=== PATIENT | female | born 1935 | race African-American/Black ===

== ENCOUNTER 2017-03-12 09:30 | Day surgery (SDC) | payer MEDICARE, BC ==
[2017-03-12] MEDS ORDERED: AMLO10TA80 PO (11:16)
[2017-03-12] MEDS ORDERED: ATOR10TA PO (11:16)
[2017-03-12] MEDS ORDERED: DONE5TAB33 PO (11:16)
[2017-03-12] MEDS ORDERED: DOXA2TAB2 PO (11:16)
[2017-03-12] MEDS ORDERED: GABA-529 PO (11:16)
[2017-03-12] MEDS ORDERED: OXYBUTYNIN CHLORIDE (11:16)
[2017-03-12] MEDS ORDERED: BACL-141 PO (11:16)
[2017-03-12] MEDS ORDERED: FURO20TA4 PO (11:16)
[2017-03-12] MEDS ORDERED: CLON0.1T PO (11:16)
[2017-03-12] MEDS ORDERED: vicodin PO (11:16)
[2017-03-12] MEDS ORDERED: MIDAZOLAM HCL 2 MG/2 ML VIAL ONE (11:44)
[2017-03-12] MEDS ORDERED: HEPARIN SODIUM 1,000 UNIT/1ML VIAL IV ONE (11:45)
[2017-03-12] MEDS ORDERED: FENTANYL CITRATE/PF 50MCG/ML 2ML VIAL ONE (11:45)
[2017-03-12] MEDS ORDERED: IOHEXOL-300 100 ML BOTTLE ONE (11:46)
[2017-03-12] MEDS ORDERED: LIDOCAINE HCL 1% 20ML VIAL (Pyxis) INJ ONE (11:46)
[2017-03-12] MEDS ORDERED: ACETAMINOPHEN 325MG TABLET PO PRN (13:00)
== END 2017-03-12 17:00 | disposition home or self-care (01) ==
LOC: CCL 09:30
PROVIDERS: ATTEND Specialist
DX: I35.0 Nonrheumatic aortic (valve) stenosis (principal); I25.10 Atherosclerotic heart disease of native coronary artery without angina pectoris; I11.9 Hypertensive heart disease without heart failure; E78.5 Hyperlipidemia, unspecified
CPT/HCPCS: 93460; 99152; 99153; C1760; C1769; C1887; C1893; J1644; J2250; J3010; J3490; J7040; Q9967

== ENCOUNTER 2017-05-15 17:02 | Inpatient (IN) | payer MEDICARE, BC ==
[~2017-05-15] VITALS: Ht 167.6 cm; Wt 84.6 kg
[~2017-05-15 17:02] MED LIST: AMLO10TA80 PO; ATOR10TA PO; BACL-141 PO; CLON0.1T PO; DONE5TAB33 PO; DOXA2TAB2 PO; FURO20TA4 PO; GABA-529 PO; OXYBUTYNIN CHLORIDE; vicodin PO
[2017-05-15] MEDS ORDERED: SODIUM CHLORIDE 0.9% 1,000 ML IV ONE ×2 (17:32→18:45)
[2017-05-15] MEDS ORDERED: PANTOPRAZOLE SODIUM 40 MG/VIAL IV STA (17:32)
[2017-05-15 18:20] LABS: BASOPHILS % 0.3 % (0.0-2.0); LYMPHOCYTES % 9.3 % (20.0-50.0); MEAN CORPUSCULAR HEMOGLOBIN 28.1 pg (28.0-32.0); MEAN CORPUSCULAR VOLUME 87.4 fL (81.0-99.0); MEAN PLATELET VOLUME 9.3 fl (7.4-10.4); MONOCYTES % 5.1 % (2.0-8.0); NEUTROPHILS % 85.3 % (40.0-76.0); PLATELET 145 x1000/uL (130-400)
[2017-05-15 18:21] LABS: CHLORIDE 108 mEq/L (98-107); HEMATOCRIT. 17.5 % (36.0-48.0); HEMOGLOBIN. 5.6 g/dL (12.0-16.0)
[2017-05-15 18:22] LABS: INR 1.1; PROTHROMBIN TIME 11.6 sec (9.4-11.6)
[2017-05-15 18:27] LABS: CARBON DIOXIDE 19 mEq/L (21-32)
[2017-05-15] MEDS ORDERED: FENTANYL CITRATE/PF 50MCG/ML 2ML VIAL IV ONE (21:45)
[2017-05-15] MEDS ORDERED: CLONIDINE 0.1MG TABLET PO PRN (23:15)
[2017-05-16] VITALS (22 sets, daily range): BP systolic 91–142; BP diastolic 40–88
[2017-05-16] MEDS: HYDROCODONE/APAP 7.5/325MG 1 TAB TABLET PO PRN ×2 (00:01→12:06)
[2017-05-16] MEDS ORDERED: BACLOFEN 10MG TABLET PO PRN (00:30)
[2017-05-16] MEDS ORDERED: FUROSEMIDE 20MG/2ML VIAL IVP NR (01:00)
[2017-05-16] MEDS ORDERED: PANTOPRAZOLE SODIUM 40 MG/VIAL IV NR (03:15)
[2017-05-16] MEDS: ONDANSETRON HCL 4MG/2ML VIAL IV PRN (03:44)
[2017-05-16] MEDS ORDERED: BACLOFEN 10MG TABLET PO SCH (06:00)
[2017-05-16] MEDS: GABAPENTIN 100MG CAPSULE PO SCH (08:45)
[2017-05-16] MEDS ORDERED: PANTOPRAZOLE SODIUM 40 MG/VIAL IV SCH (09:00)
[2017-05-16] MEDS ORDERED: OCTREOTIDE ACETATE 50 MCG/ML 1ML IV ONE (10:15)
[2017-05-16] MEDS ORDERED: OCTREOTIDE ACETATE 50 MCG/ML 1ML IV NR (11:30)
[2017-05-16] MEDS: OCTREOTIDE 1,000 MCG in SODIUM CHLORIDE 0.9% 98 ML IV SCH (11:55)
[2017-05-16 12:39] LABS: BASOPHILS % 0.4 % (0.0-2.0); EOSINOPHILS % 0.1 % (0.0-5.0); HEMATOCRIT. 25.3 % (36.0-48.0); HEMOGLOBIN. 8.7 g/dL (12.0-16.0); LYMPHOCYTES % 15.7 % (20.0-50.0); MEAN CORPUSCULAR HEMOGLOBIN 28.2 pg (28.0-32.0); MEAN CORPUSCULAR VOLUME 81.4 fL (81.0-99.0); MEAN PLATELET VOLUME 10.2 fl (7.4-10.4); MONOCYTES % 9.3 % (2.0-8.0); NEUTROPHILS % 74.5 % (40.0-76.0); PLATELET 105 x1000/uL (130-400); RED CELL DISTRIBUTION WIDTH 17.5 % (11.6-14.6)
[2017-05-16] MEDS ORDERED: MIDAZOLAM HCL 5 MG/5 ML VIAL ONE (13:27)
[2017-05-16] MEDS ORDERED: SIMETHICONE 40 MG/0.6 ML 30ML ONE (13:27)
[2017-05-16] MEDS ORDERED: FENTANYL CITRATE/PF 50MCG/ML 2ML VIAL ONE (13:27)
[2017-05-16] MEDS ORDERED: EPINEPHRINE 0.1MG/ML (1:10,000) 10ML SYR ONE (13:50)
[2017-05-16] MEDS ORDERED: PROPOFOL 200MG/20ML VIAL IV ONE (14:17)
[2017-05-16] MEDS: PANTOPRAZOLE 80 MG in SODIUM CHLORIDE 0.9% 100 ML IV SCH (16:46)
[2017-05-16] MEDS: MORPHINE SULFATE 4 MG/ML CPJ (NOT FOR IM USE) IV PRN (20:54)
[2017-05-16] MEDS: ATORVASTATIN CALCIUM 10MG TABLET PO SCH (20:54)
[2017-05-17] VITALS (16 sets, daily range): BP systolic 99–162; BP diastolic 36–89
[2017-05-17] MEDS: MORPHINE SULFATE 4 MG/ML CPJ (NOT FOR IM USE) IV PRN ×3 (02:29→12:43)
[2017-05-17] MEDS: ONDANSETRON HCL 4MG/2ML VIAL IV PRN (05:22)
[2017-05-17] MEDS: OCTREOTIDE 1,000 MCG in SODIUM CHLORIDE 0.9% 98 ML IV SCH ×3 (05:23→17:30)
[2017-05-17] MEDS: PANTOPRAZOLE 80 MG in SODIUM CHLORIDE 0.9% 100 ML IV SCH ×3 (05:24→17:17)
[2017-05-17] MEDS: GABAPENTIN 100MG CAPSULE PO SCH (08:30)
[2017-05-17 10:40] LABS: BASOPHILS % 0.6 % (0.0-2.0); EOSINOPHILS % 0.3 % (0.0-5.0); HEMATOCRIT. 23.2 % (36.0-48.0); HEMOGLOBIN. 7.8 g/dL (12.0-16.0); LYMPHOCYTES % 13.4 % (20.0-50.0); MEAN CORPUSCULAR HEMOGLOBIN 28.3 pg (28.0-32.0); MEAN CORPUSCULAR VOLUME 84.4 fL (81.0-99.0); MEAN PLATELET VOLUME 9.6 fl (7.4-10.4); MONOCYTES % 9.5 % (2.0-8.0); NEUTROPHILS % 76.2 % (40.0-76.0); PLATELET 119 x1000/uL (130-400); RED BLOOD CELL COUNT 2.75 mill/uL (4.2-5.4); RED CELL DISTRIBUTION WIDTH 17.7 % (11.6-14.6)
[2017-05-17] MEDS: HYDROCODONE/APAP 7.5/325MG 1 TAB TABLET PO PRN ×2 (14:19→21:12)
[2017-05-17 18:53] LABS: HEMATOCRIT 25.7 % (36.0-48.0); HEMOGLOBIN 8.7 g/dL (12.0-16.0)
[2017-05-17] MEDS: ATORVASTATIN CALCIUM 10MG TABLET PO SCH (21:12)
[2017-05-18] VITALS (78 sets, daily range): BP systolic 53–169; BP diastolic 21–127
[2017-05-18] MEDS: MORPHINE SULFATE 4 MG/ML CPJ (NOT FOR IM USE) IV PRN ×2 (01:13→22:10)
[2017-05-18] MEDS: ONDANSETRON HCL 4MG/2ML VIAL IV PRN (04:12)
[2017-05-18] MEDS: OCTREOTIDE 1,000 MCG in SODIUM CHLORIDE 0.9% 98 ML IV SCH (04:13)
[2017-05-18] MEDS: PANTOPRAZOLE 80 MG in SODIUM CHLORIDE 0.9% 100 ML IV SCH ×2 (04:13→15:30)
[2017-05-18] MEDS ORDERED: METOCLOPRAMIDE HCL 10MG/2ML VIAL IV NR (05:29)
[2017-05-18] MEDS ORDERED: SODIUM CHLORIDE 0.9% 500 ML IV NR (05:30)
[2017-05-18 06:16] LABS: BASOPHILS % 0.7 % (0.0-2.0); EOSINOPHILS % 1.2 % (0.0-5.0); HEMATOCRIT. 21.2 % (36.0-48.0); LYMPHOCYTES % 23.4 % (20.0-50.0); MEAN CORPUSCULAR HEMOGLOBIN 28.8 pg (28.0-32.0); MEAN PLATELET VOLUME 10.7 fl (7.4-10.4); NEUTROPHILS % 65.7 % (40.0-76.0); PLATELET 86 x1000/uL (130-400); RED BLOOD CELL COUNT 2.44 mill/uL (4.2-5.4)
[2017-05-18] MEDS ORDERED: NOREPINEPHRINE 8 MG in DEXT 5% WATER 242 ML IV PRN (07:30)
[2017-05-18] MEDS ORDERED: PROMETHAZINE HCL 25MG SUPP PR NR (08:00)
[2017-05-18] MEDS: GABAPENTIN 100MG CAPSULE PO SCH (09:00)
[2017-05-18] MEDS ORDERED: LIDOCAINE HCL 1% 20ML VIAL (Pyxis) INJ ONE (09:15)
[2017-05-18] MEDS ORDERED: SODIUM BICARBONATE 4% (2.4MEQ) 5ML VIAL IV ONE (09:15)
[2017-05-18] MEDS ORDERED: PHENYLEPHRINE 20 MG in DEXT 5% WATER 248 ML IV PRN (09:45)
[2017-05-18] MEDS ORDERED: DIGOXIN 500MCG/2ML AMP IV NR (09:45)
[2017-05-18] MEDS ORDERED: DILTIAZEM HCL 125 MG in DEXT 5% WATER 100 ML IV PRN (09:45)
[2017-05-18] MEDS ORDERED: FUROSEMIDE 20MG/2ML VIAL IVP NR ×3 (10:15→13:45)
[2017-05-18] MEDS ORDERED: IPRATROPIUM/ALBUTEROL 0.5-3(2.5)MG/3ML NEB HHN PRN (11:30)
[2017-05-18 17:22] LABS: BASOPHILS % 0.1 % (0.0-2.0); HEMATOCRIT. 32.8 % (36.0-48.0); HEMOGLOBIN. 11.2 g/dL (12.0-16.0); LYMPHOCYTES % 7.5 % (20.0-50.0); MEAN CORPUSCULAR HEMOGLOBIN 29.9 pg (28.0-32.0); MEAN CORPUSCULAR VOLUME 87.6 fL (81.0-99.0); MEAN PLATELET VOLUME 9.6 fl (7.4-10.4); MONOCYTES % 11.2 % (2.0-8.0); NEUTROPHILS % 81.2 % (40.0-76.0); PLATELET 114 x1000/uL (130-400); RED BLOOD CELL COUNT 3.74 mill/uL (4.2-5.4); RED CELL DISTRIBUTION WIDTH 15.7 % (11.6-14.6)
[2017-05-18] MEDS: ATORVASTATIN CALCIUM 10MG TABLET PO SCH (21:00)
[2017-05-19] VITALS (67 sets, daily range): BP systolic 95–167; BP diastolic 47–122
[2017-05-19] MEDS: MORPHINE SULFATE 4 MG/ML CPJ (NOT FOR IM USE) IV PRN ×3 (01:36→11:05)
[2017-05-19] MEDS: PANTOPRAZOLE 80 MG in SODIUM CHLORIDE 0.9% 100 ML IV SCH ×2 (02:12→11:32)
[2017-05-19] MEDS: OCTREOTIDE 1,000 MCG in SODIUM CHLORIDE 0.9% 98 ML IV SCH (02:17)
[2017-05-19 06:12] LABS: BASOPHILS % 0.1 % (0.0-2.0); EOSINOPHILS % 0.3 % (0.0-5.0); HEMATOCRIT. 30.2 % (36.0-48.0); LYMPHOCYTES % 18.9 % (20.0-50.0); MEAN CORPUSCULAR HEMOGLOBIN 29.5 pg (28.0-32.0); MEAN CORPUSCULAR VOLUME 88.6 fL (81.0-99.0); MEAN PLATELET VOLUME 10.1 fl (7.4-10.4); MONOCYTES % 11.8 % (2.0-8.0); NEUTROPHILS % 68.9 % (40.0-76.0); PLATELET 93 x1000/uL (130-400); RED BLOOD CELL COUNT 3.41 mill/uL (4.2-5.4); RED CELL DISTRIBUTION WIDTH 15.9 % (11.6-14.6)
[2017-05-19] MEDS: GABAPENTIN 100MG CAPSULE PO SCH ×2 (09:00→14:24)
[2017-05-19] MEDS: PANTOPRAZOLE SODIUM 40 MG/VIAL IV SCH ×2 (13:12→22:15)
[2017-05-19] MEDS: ATORVASTATIN CALCIUM 10MG TABLET PO SCH (22:15)
[2017-05-20] VITALS (36 sets, daily range): BP systolic 106–180; BP diastolic 54–100
[2017-05-20] MEDS: MORPHINE SULFATE 4 MG/ML CPJ (NOT FOR IM USE) IV PRN ×5 (00:18→18:58)
[2017-05-20] MEDS: PANTOPRAZOLE SODIUM 40 MG/VIAL IV SCH ×2 (08:16→20:38)
[2017-05-20] MEDS: GABAPENTIN 100MG CAPSULE PO SCH (08:24)
[2017-05-20 08:47] LABS: HEMATOCRIT 27.4 % (36.0-48.0); HEMOGLOBIN 9.2 g/dL (12.0-16.0); MEAN CORPUSCULAR HEMOGLOBIN 29.6 pg (28.0-32.0); MEAN CORPUSCULAR VOLUME 88.3 fL (81.0-99.0); PLATELET 120 x1000/uL (130-400); RED CELL DISTRIBUTION WIDTH 15.7 % (11.6-14.6)
[2017-05-20] MEDS: ATORVASTATIN CALCIUM 10MG TABLET PO SCH (20:38)
[2017-05-21] VITALS (24 sets, daily range): BP systolic 76–159; BP diastolic 48–90
[2017-05-21] MEDS ORDERED: MORPHINE SULFATE 4 MG/ML CPJ (NOT FOR IM USE) IV PRN ×2 (04:15→09:30)
[2017-05-21 07:31] LABS: HEMATOCRIT. 26.8 % (36.0-48.0); MEAN CORPUSCULAR HEMOGLOBIN 29.6 pg (28.0-32.0); MEAN CORPUSCULAR VOLUME 88.4 fL (81.0-99.0); MEAN PLATELET VOLUME 9.2 fl (7.4-10.4); PLATELET 125 x1000/uL (130-400); RED BLOOD CELL COUNT 3.04 mill/uL (4.2-5.4)
[2017-05-21 08:02] LABS: CHLORIDE 113 mEq/L (98-107)
[2017-05-21 08:08] LABS: CARBON DIOXIDE 25 mEq/L (21-32); HDL CHOLESTEROL 29 mg/dL (40-59); LDL CHOLESTEROL 46 mg/dL (5-100)
[2017-05-21] MEDS: AMLODIPINE 5MG TABLET PO SCH ×2 (09:30→23:14)
[2017-05-21] MEDS: PANTOPRAZOLE SODIUM 40 MG/VIAL IV SCH ×2 (09:50→21:40)
[2017-05-21] MEDS: GABAPENTIN 100MG CAPSULE PO SCH (09:50)
[2017-05-21] MEDS: DOCUSATE SODIUM 250MG CAPSULE PO SCH (11:42)
[2017-05-21 12:15] LABS: PLATELET ESTIMATE SLIGHTLY DECREASED
[2017-05-21 13:34] LABS: CLARITY URINE CLOUDY (CLEAR); COLOR URINE YELLOW (YELLOW); GLUCOSE URINE NEGATIVE (NEGATIVE); KETONES URINE NEGATIVE (NEGATIVE); LEUKOCYTE ESTERASE URINE 3+ (NEGATIVE); NITRITE URINE POSITIVE (NEGATIVE); OCCULT BLOOD URINE 3+ (NEGATIVE); PH URINE >=9.0 (4.5-8.0); PROTEIN URINE 1+ (NEGATIVE); SPECIFIC GRAVITY URINE 1.021 (1.005-1.030); UROBILINOGEN URINE 0.2 E.U./dL (0.2-1.0)
[2017-05-21] MEDS: ATORVASTATIN CALCIUM 10MG TABLET PO SCH (21:40)
[2017-05-21] MEDS: MORPHINE SULFATE 2 MG/ML CPJ (NOT FOR IM USE) IV PRN (21:42)
[2017-05-21] MEDS: LEVOFLOXACIN 500MG PREMIX 100 ML IV SCH (22:25)
[2017-05-22] VITALS (17 sets, daily range): BP systolic 97–164; BP diastolic 57–83
[2017-05-22 07:49] LABS: INR 1.1; PARTIAL THROMBOPLASTIN TIME 24.6 sec (23.4-31.0); PROTHROMBIN TIME 11.5 sec (9.4-11.6)
[2017-05-22] MEDS: PANTOPRAZOLE SODIUM 40 MG/VIAL IV SCH ×2 (08:20→21:00)
[2017-05-22] MEDS: AMLODIPINE 5MG TABLET PO SCH ×2 (08:21→21:00)
[2017-05-22] MEDS: GABAPENTIN 100MG CAPSULE PO SCH (08:22)
[2017-05-22] MEDS: DOCUSATE SODIUM 250MG CAPSULE PO SCH (08:22)
[2017-05-22] MEDS: MORPHINE SULFATE 2 MG/ML CPJ (NOT FOR IM USE) IV PRN ×2 (08:52→22:46)
[2017-05-22] MEDS ORDERED: SODIUM CHLORIDE 0.9% 10ML VIAL ONE (11:35)
[2017-05-22] MEDS ORDERED: SIMETHICONE 40 MG/0.6 ML 30ML ONE (11:35)
[2017-05-22] MEDS ORDERED: MIDAZOLAM HCL 5 MG/5 ML VIAL IV PRN ×2 (14:32)
[2017-05-22] MEDS ORDERED: MIDAZOLAM HCL 5 MG/5 ML VIAL ONE (14:38)
[2017-05-22] MEDS ORDERED: FENTANYL CITRATE/PF 50MCG/ML 2ML VIAL ONE (14:38)
[2017-05-22 17:03] LABS: HEMATOCRIT. 27.3 % (36.0-48.0); HEMOGLOBIN. 9.1 g/dL (12.0-16.0); MEAN CORPUSCULAR HEMOGLOBIN 29.6 pg (28.0-32.0); MEAN CORPUSCULAR VOLUME 88.7 fL (81.0-99.0); MEAN PLATELET VOLUME 8.5 fl (7.4-10.4); PLATELET 158 x1000/uL (130-400); RED BLOOD CELL COUNT 3.08 mill/uL (4.2-5.4); RED CELL DISTRIBUTION WIDTH 16.1 % (11.6-14.6)
[2017-05-22 17:35] LABS: PLATELET ESTIMATE NORMAL
[2017-05-22] MEDS: ATORVASTATIN CALCIUM 10MG TABLET PO SCH (21:00)
[2017-05-22] MEDS: LEVOFLOXACIN 500MG PREMIX 100 ML IV SCH (21:00)
[2017-05-23] VITALS (18 sets, daily range): BP systolic 104–160; BP diastolic 59–76
[2017-05-23] MEDS: MORPHINE SULFATE 2 MG/ML CPJ (NOT FOR IM USE) IV PRN ×2 (06:30→20:51)
[2017-05-23 06:31] LABS: CARBON DIOXIDE 28 mEq/L (21-32); CHLORIDE 109 mEq/L (98-107)
[2017-05-23 06:32] LABS: HEMOGLOBIN. 9.2 g/dL (12.0-16.0); MEAN CORPUSCULAR HEMOGLOBIN 30.3 pg (28.0-32.0); MEAN CORPUSCULAR VOLUME 88.7 fL (81.0-99.0); PLATELET 164 x1000/uL (130-400); RED BLOOD CELL COUNT 3.04 mill/uL (4.2-5.4)
[2017-05-23] MEDS: GABAPENTIN 100MG CAPSULE PO SCH (09:05)
[2017-05-23] MEDS: PANTOPRAZOLE SODIUM 40 MG/VIAL IV SCH ×2 (09:05→20:45)
[2017-05-23] MEDS: DOCUSATE SODIUM 250MG CAPSULE PO SCH (09:05)
[2017-05-23] MEDS: AMLODIPINE 5MG TABLET PO SCH ×2 (09:06→20:47)
[2017-05-23] MEDS: ACETAMINOPHEN 325MG TABLET PO PRN (10:49)
[2017-05-23 13:44] LABS: PLATELET ESTIMATE NORMAL
[2017-05-23] MEDS ORDERED: POTASSIUM CHLORIDE 20MEQ/PACKET PO SCH (16:45)
[2017-05-23] MEDS: ONDANSETRON HCL 4MG/2ML VIAL IV PRN (18:31)
[2017-05-23] MEDS: ATORVASTATIN CALCIUM 10MG TABLET PO SCH (20:46)
[2017-05-23] MEDS: LEVOFLOXACIN 500MG PREMIX 100 ML IV SCH (20:47)
[2017-05-24] VITALS (13 sets, daily range): BP systolic 103–153; BP diastolic 51–75
[2017-05-24] MEDS: MORPHINE SULFATE 2 MG/ML CPJ (NOT FOR IM USE) IV PRN ×4 (05:29→21:41)
[2017-05-24 08:01] LABS: HEMATOCRIT. 27.2 % (36.0-48.0); MEAN CORPUSCULAR HEMOGLOBIN 29.8 pg (28.0-32.0); MEAN CORPUSCULAR VOLUME 89.5 fL (81.0-99.0); MEAN PLATELET VOLUME 10.1 fl (7.4-10.4); PLATELET 191 x1000/uL (130-400); RED BLOOD CELL COUNT 3.03 mill/uL (4.2-5.4); RED CELL DISTRIBUTION WIDTH 16.2 % (11.6-14.6)
[2017-05-24] MEDS: DOCUSATE SODIUM 250MG CAPSULE PO SCH (08:24)
[2017-05-24] MEDS: PANTOPRAZOLE SODIUM 40 MG/VIAL IV SCH ×2 (08:24→21:39)
[2017-05-24] MEDS: AMLODIPINE 5MG TABLET PO SCH ×2 (08:25→21:39)
[2017-05-24] MEDS: GABAPENTIN 100MG CAPSULE PO SCH (08:25)
[2017-05-24 09:07] LABS: CARBON DIOXIDE 27 mEq/L (21-32); CHLORIDE 114 mEq/L (98-107)
[2017-05-24 13:50] LABS: PLATELET ESTIMATE NORMAL
[2017-05-24] MEDS: ATORVASTATIN CALCIUM 10MG TABLET PO SCH (21:39)
[2017-05-24] MEDS: LEVOFLOXACIN 500MG PREMIX 100 ML IV SCH (21:40)
[2017-05-25] VITALS (16 sets, daily range): BP systolic 81–148; BP diastolic 36–93
[2017-05-25] MEDS: MORPHINE SULFATE 2 MG/ML CPJ (NOT FOR IM USE) IV PRN ×2 (04:24→21:25)
[2017-05-25 06:45] LABS: BASOPHILS % 0.3 % (0.0-2.0); EOSINOPHILS % 2.4 % (0.0-5.0); HEMOGLOBIN. 8.7 g/dL (12.0-16.0); LYMPHOCYTES % 15.1 % (20.0-50.0); MEAN CORPUSCULAR HEMOGLOBIN 29.8 pg (28.0-32.0); MEAN CORPUSCULAR VOLUME 88.8 fL (81.0-99.0); MONOCYTES % 10.1 % (2.0-8.0); NEUTROPHILS % 72.1 % (40.0-76.0); PLATELET 207 x1000/uL (130-400); RED BLOOD CELL COUNT 2.93 mill/uL (4.2-5.4); RED CELL DISTRIBUTION WIDTH 16.3 % (11.6-14.6)
[2017-05-25 07:25] LABS: CARBON DIOXIDE 28 mEq/L (21-32); CHLORIDE 109 mEq/L (98-107)
[2017-05-25] MEDS: PANTOPRAZOLE SODIUM 40 MG/VIAL IV SCH ×2 (08:42→20:55)
[2017-05-25] MEDS: DOCUSATE SODIUM 250MG CAPSULE PO SCH (08:42)
[2017-05-25] MEDS: AMLODIPINE 5MG TABLET PO SCH (08:43)
[2017-05-25] MEDS: GABAPENTIN 100MG CAPSULE PO SCH (08:43)
[2017-05-25] MEDS: ACETAMINOPHEN 325MG TABLET PO PRN (08:58)
[2017-05-25] MEDS ORDERED: DIGOXIN 500MCG/2ML AMP IV SCH (10:45)
[2017-05-25] MEDS: DILTIAZEM HCL 60MG TABLET PO SCH ×3 (13:41→23:23)
[2017-05-25 17:20] LABS: HEMATOCRIT 29.3 % (36.0-48.0); HEMOGLOBIN 9.7 g/dL (12.0-16.0); MEAN CORPUSCULAR HEMOGLOBIN 29.7 pg (28.0-32.0); MEAN CORPUSCULAR VOLUME 89.3 fL (81.0-99.0); PLATELET 248 x1000/uL (130-400); RED BLOOD CELL COUNT 3.28 mill/uL (4.2-5.4); RED CELL DISTRIBUTION WIDTH 16.2 % (11.6-14.6)
[2017-05-25] MEDS: ATORVASTATIN CALCIUM 10MG TABLET PO SCH (20:55)
[2017-05-25] MEDS: LEVOFLOXACIN 500MG PREMIX 100 ML IV SCH (20:55)
[2017-05-26] VITALS (12 sets, daily range): BP systolic 102–131; BP diastolic 42–75
[2017-05-26] MEDS: ACETAMINOPHEN 325MG TABLET PO PRN ×3 (00:32→17:52)
[2017-05-26] MEDS: DILTIAZEM HCL 60MG TABLET PO SCH ×3 (06:00→18:20)
[2017-05-26 06:45] LABS: BASOPHILS % 0.6 % (0.0-2.0); EOSINOPHILS % 1.9 % (0.0-5.0); HEMATOCRIT. 24.7 % (36.0-48.0); HEMOGLOBIN. 8.2 g/dL (12.0-16.0); LYMPHOCYTES % 14.3 % (20.0-50.0); MEAN CORPUSCULAR HEMOGLOBIN 29.2 pg (28.0-32.0); MEAN CORPUSCULAR VOLUME 87.8 fL (81.0-99.0); MEAN PLATELET VOLUME 8.8 fl (7.4-10.4); MONOCYTES % 9.1 % (2.0-8.0); NEUTROPHILS % 74.1 % (40.0-76.0); PLATELET 221 x1000/uL (130-400); RED BLOOD CELL COUNT 2.81 mill/uL (4.2-5.4); RED CELL DISTRIBUTION WIDTH 16.2 % (11.6-14.6)
[2017-05-26 07:07] LABS: CARBON DIOXIDE 27 mEq/L (21-32); CHLORIDE 109 mEq/L (98-107)
[2017-05-26] MEDS: GABAPENTIN 100MG CAPSULE PO SCH (09:14)
[2017-05-26] MEDS: PANTOPRAZOLE SODIUM 40 MG/VIAL IV SCH ×2 (09:14→21:01)
[2017-05-26] MEDS: DOCUSATE SODIUM 250MG CAPSULE PO SCH (09:14)
[2017-05-26] MEDS: ATORVASTATIN CALCIUM 10MG TABLET PO SCH (21:01)
[2017-05-26] MEDS: LEVOFLOXACIN 500MG PREMIX 100 ML IV SCH (21:01)
[2017-05-27] VITALS (30 sets, daily range): BP systolic 59–147; BP diastolic 22–74
[2017-05-27] MEDS: DILTIAZEM HCL 60MG TABLET PO SCH ×3 (00:04→12:00)
[2017-05-27] MEDS: ACETAMINOPHEN 325MG TABLET PO PRN (00:05)
[2017-05-27 06:55] LABS: BASOPHILS % 0.7 % (0.0-2.0); EOSINOPHILS % 1.4 % (0.0-5.0); HEMATOCRIT. 24.9 % (36.0-48.0); HEMOGLOBIN. 8.2 g/dL (12.0-16.0); LYMPHOCYTES % 13.9 % (20.0-50.0); MEAN CORPUSCULAR VOLUME 88.2 fL (81.0-99.0); MEAN PLATELET VOLUME 8.8 fl (7.4-10.4); MONOCYTES % 8.8 % (2.0-8.0); NEUTROPHILS % 75.2 % (40.0-76.0); PLATELET 240 x1000/uL (130-400); RED BLOOD CELL COUNT 2.83 mill/uL (4.2-5.4); RED CELL DISTRIBUTION WIDTH 15.9 % (11.6-14.6)
[2017-05-27] MEDS ORDERED: BUPIVACAINE HCL 0.5% (5MG/ML) 50ML ONE (07:07)
[2017-05-27] MEDS ORDERED: CEFAZOLIN SODIUM 1000MG/VIAL ONE (07:34)
[2017-05-27] MEDS ORDERED: ETOMIDATE 2MG/ML 10ML VIAL IV ONE ×2 (07:34→15:33)
[2017-05-27] MEDS ORDERED: PHENYLEPHRINE HCL 10 MG/ML 1ML (IV VIAL) IV ONE (07:35)
[2017-05-27] MEDS ORDERED: ROCURONIUM BROMIDE 10MG/ML VIAL 5ML IV ONE (07:35)
[2017-05-27] MEDS ORDERED: FENTANYL CITRATE/PF 50MCG/ML 2ML VIAL ONE ×2 (07:35→14:49)
[2017-05-27] MEDS ORDERED: ONDANSETRON HCL 4MG/2ML VIAL ONE (08:09)
[2017-05-27] MEDS ORDERED: NEOSTIGMINE METHYLSULFATE 1MG/ML 10 ML VIAL ONE (08:09)
[2017-05-27] MEDS ORDERED: GLYCOPYRROLATE 0.2 MG/ML 2ML VIAL ONE (08:09)
[2017-05-27] MEDS ORDERED: HYDROMORPHONE HCL/PF 2MG/ML (OR) ONE (08:11)
[2017-05-27] MEDS ORDERED: KETOROLAC 30MG/ML VIAL ONE (08:11)
[2017-05-27] MEDS ORDERED: BUPIVACAINE HCL 0.5% 125 ML in ON-Q PM012 DRUG DELIV DEVICE 1 EA IR SCH (08:15)
[2017-05-27] MEDS ORDERED: LABETALOL HCL 20MG/4ML CARPUJECT IV PRN (08:45)
[2017-05-27] MEDS ORDERED: MEPERIDINE HCL/PF 25MG/ML CPJ IV PRN (08:45)
[2017-05-27] MEDS ORDERED: ONDANSETRON HCL 4MG/2ML VIAL IV PRN ×2 (08:45→09:00)
[2017-05-27] MEDS: PANTOPRAZOLE SODIUM 40 MG/VIAL IV SCH (09:00)
[2017-05-27] MEDS: GABAPENTIN 100MG CAPSULE PO SCH (09:00)
[2017-05-27] MEDS: DOCUSATE SODIUM 250MG CAPSULE PO SCH (09:00)
[2017-05-27] MEDS ORDERED: MORPHINE SULFATE 2 MG/ML CPJ (NOT FOR IM USE) IV PRN (09:00)
[2017-05-27] MEDS: HYDROMORPHONE HCL/PF 2MG/ML CPJ IV PRN ×5 (09:30→10:23)
[2017-05-27] MEDS ORDERED: PHENYLEPHRINE 10 MG in DEXT 5% WATER 249 ML IV PRN (10:45)
[2017-05-27] MEDS ORDERED: ALBUMIN HUMAN 12.5G/250ML (5%) IV ONE (10:59)
[2017-05-27] MEDS ORDERED: PHENYLEPHRINE 40 MG in DEXT 5% WATER 246 ML IV PRN (11:45)
[2017-05-27] MEDS ORDERED: ALBUMIN HUMAN 12.5G/250ML (5%) IV NR ×2 (12:00→14:20)
[2017-05-27] MEDS: PHENYLEPHRINE 40 MG in DEXTROSE 5% WATER 250 ML IV PRN ×2 (13:25→15:01)
[2017-05-27] MEDS ORDERED: NOREPINEPHRINE 8 MG in DEXT 5% WATER 242 ML IV PRN (13:30)
[2017-05-27 13:37] LABS: INR 1.2
[2017-05-27 13:44] LABS: HEMATOCRIT 18.6 % (36.0-48.0); HEMOGLOBIN 6.1 g/dL (12.0-16.0)
[2017-05-27] MEDS ORDERED: DEXT 5%/0.45% NACL KCL 20MEQ/L 1,000 ML IV SCH (14:00)
[2017-05-27] MEDS ORDERED: LORAZEPAM 2MG/ML CPJ IV PRN (14:30)
[2017-05-27] MEDS ORDERED: MIDAZOLAM HCL 2 MG/2 ML VIAL ONE (14:49)
[2017-05-27] MEDS ORDERED: VERAPAMIL HCL 2.5 MG/1 ML 2ML VIAL IV ONE (15:30)
[2017-05-27] MEDS ORDERED: SODIUM BICARBONATE 7.5% 0.9 MEQ/ML 50ML SYR IV ONE (15:30)
[2017-05-27] MEDS ORDERED: CALCIUM CHLORIDE 1GM/10ML SYR IV ONE ×2 (15:30)
[2017-05-27] MEDS ORDERED: DOPAMINE 400MG IN DEXT 5% 250ML PREMIX IV ONE (15:30)
[2017-05-27] MEDS ORDERED: AMIODARONE HCL 50MG/ML 3ML VIAL IV ONE (15:30)
[2017-05-27] MEDS ORDERED: EPINEPHRINE 0.1MG/ML (1:10,000) 10ML SYR ONE ×3 (15:30→15:48)
[2017-05-27] MEDS ORDERED: SUCCINYLCHOLINE CHLORIDE 200MG/10ML VIAL IV ONE (15:33)
[2017-05-27] MEDS ORDERED: PHENYTOIN SODIUM 1,000 MG in SODIUM CHLORIDE 0.9% 100 ML IV NR (16:00)
[2017-05-27] MEDS ORDERED: DEXAMETHASONE 4MG/ML 1ML VIAL ONE (16:20)
[2017-05-27] MEDS ORDERED: METOCLOPRAMIDE HCL 10MG/2ML VIAL ONE (16:20)
[2017-05-27] MEDS ORDERED: ENOXAPARIN 40MG/0.4ML SYR SUBCUT SCH (20:00)
== END 2017-05-27 20:27 | disposition expired | DRG 982 ==
LOC: ER 18:39 → 3WST 20:53 → EDBEDREQSVC 20:55 → EDBEDREQTM 20:55 → EDBEDREQ 20:55 → ENRESERV 21:15 → CVICU 05-18 07:30 → 3WST 05-21 01:32 → CVICU 05-27 12:30
PROVIDERS: ADMIT Family Medicine Adult Medicine; ATTEND Family Medicine Adult Medicine
PROC: 30233N1 Transfusion of Nonautologous Red Blood Cells into Peripheral Vein, Percutaneous Approach (ICD-10-PCS; 2017-05-15)
PROC: 3E0G8GC Introduction of Other Therapeutic Substance into Upper GI, Via Natural or Artificial Opening Endoscopic (ICD-10-PCS; 2017-05-16)
PROC: 0DB68ZX Excision of Stomach, Via Natural or Artificial Opening Endoscopic, Diagnostic (ICD-10-PCS; 2017-05-16)
PROC: 02HV33Z Insertion of Infusion Device into Superior Vena Cava, Percutaneous Approach (ICD-10-PCS; 2017-05-18)
PROC: B548ZZA Ultrasonography of Superior Vena Cava, Guidance (ICD-10-PCS; 2017-05-18)
PROC: 0DB68ZX Excision of Stomach, Via Natural or Artificial Opening Endoscopic, Diagnostic (ICD-10-PCS; principal; 2017-05-22 14:30)
PROC: 0DB60ZZ Excision of Stomach, Open Approach (ICD-10-PCS; 2017-05-27)
PROC: 0BH17EZ Insertion of Endotracheal Airway into Trachea, Via Natural or Artificial Opening (ICD-10-PCS; 2017-05-27)
PROC: 5A1935Z Respiratory Ventilation, Less than 24 Consecutive Hours (ICD-10-PCS; 2017-05-27)
PROC: 5A12012 Performance of Cardiac Output, Single, Manual (ICD-10-PCS; 2017-05-27)
DX: C49.A2 Gastrointestinal stromal tumor of stomach (principal); K92.2 Gastrointestinal hemorrhage, unspecified; R57.1 Hypovolemic shock; N17.9 Acute kidney failure, unspecified; E87.0 Hyperosmolality and hypernatremia; E44.0 Moderate protein-calorie malnutrition; E87.2 Acidosis; E66.01 Morbid (severe) obesity due to excess calories; D62 Acute posthemorrhagic anemia; I50.9 Heart failure, unspecified; I11.0 Hypertensive heart disease with heart failure; I48.91 Unspecified atrial fibrillation; N39.0 Urinary tract infection, site not specified; I50.32 Chronic diastolic (congestive) heart failure; B96.4 Proteus (mirabilis) (morganii) as the cause of diseases classified elsewhere; I35.0 Nonrheumatic aortic (valve) stenosis; R26.9 Unspecified abnormalities of gait and mobility; E78.5 Hyperlipidemia, unspecified; E87.6 Hypokalemia; I25.10 Atherosclerotic heart disease of native coronary artery without angina pectoris; I95.81 Postprocedural hypotension; K29.50 Unspecified chronic gastritis without bleeding; Z96.653 Presence of artificial knee joint, bilateral; M15.9 Polyosteoarthritis, unspecified; Z68.30 Body mass index [BMI] 30.0-30.9, adult; I46.9 Cardiac arrest, cause unspecified; R56.9 Unspecified convulsions
CPT/HCPCS: 36415; 36569; 71010; 74176; 76937; 78278; 80048; 80053; 80061; 81001; 82105; 82962; 83036; 83540; 83550; 83605; 83690; 83735; 84443; 85014; 85018; 85025; 85027; 85049; 85384; 85610; 85730; 86850; 86900; 86920; 87077; 87086; 87186; 88305; 88312; 88313; 88331; 93005; 93970; 94002; 96361; 96365; 96375; 97116; 97162; 97166; 97530; 97535; 99291; A4216; A9560; C1725; C1893; C9113; J0171; J0282; J0330; J0690; J1100; J1160; J1165; J1170; J1265; J1885; J1940; J1956; J2175; J2250; J2270; J2354; J2370; J2405; J2704; J2710; J2765; J3010; J3490; J7030; J7040; J7050; J7060; P9016; P9041; A4315